=== PATIENT | male | born 1950 | race Caucasian/White ===

== ENCOUNTER 2019-03-22 13:21 | Emergency (ER) | payer OTHER, SELFPAY ==
--- NOTE | 2019-03-22 13:31 | DI.RAD.S_ITS ---
PROCEDURE: XR CHEST 2V INDICATIONS: SOB TECHNIQUE: 2 views of the chest were acquired. COMPARISON: None. FINDINGS: Surgical changes and devices: None. Lungs and pleura: The increased density is seen within the right upper lobe. No definite pneumothorax is appreciated. There is no effusion. Mediastinum: Mediastinal contours are normal. Heart size is normal. Bones and chest wall: No suspicious bony abnormalities. Soft tissues appear unremarkable. IMPRESSION: Right upper lobe airspace disease is suspicious for developing pneumonia. Dictated by: Dhaval Soliman M.D. on 03/22/2019 at 14:29 Approved by: Dhaval Soliman M.D. on 03/22/2019 at 14:29
--- NOTE | 2019-03-22 13:32 | ED.SOB ---
HPI - SOB/Dyspnea General Chief Complaint: Upper Respiratory Symptoms Stated Complaint: trouble breathing about 10 days Time Seen by Provider: 03/22/19 13:26 Source: patient Mode of arrival: ambulatory Limitations: no limitations History of Present Illness 69-year-old male nonsmoker with benign medical history presents with a chief complaint of 10 days of shortness of breath, wheeze, fatigue, fever and chills and cough. 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 He tends to get better after of course of Augmentin but this time around if anything he is worse. He has chest pain but only with cough and denies any radiation of this pain. He denies any nausea, vomiting or diarrhea. He last took Tylenol a few hours ago. He is traveling from [place]. He denies any recent injuries, trauma or surgery. He denies any history of blood clots or cancer MD Complaint: shortness of breath, cough and pain with inspiration Onset (ago): day(s) Context: recent illness Severity: moderate Consistency/Duration: constant Relieving factors: rest Exacerbating factors: exertion, movement and coughing Associated symptoms: pain with inspiration, fever, cough and wheezing Related Data Home oxygen amount: none Home Medications Medication Instructions Recorded Confirmed montelukast 10 mg PO DAILY 03/22/19 03/22/19 sertraline 100 mg PO DAILY 03/22/19 03/22/19 simvastatin 20 mg PO DAILY 03/22/19 Previous Rx's Medication Instructions Recorded albuterol sulfate 2 puff INHALATION Q4H PRN #1 each 03/22/19 doxycycline hyclate 100 mg PO BID #20 tab 03/22/19 Allergies Allergy/AdvReac Type Severity Reaction Status Date / Time No Known Drug Allergies Allergy Verified 03/22/19 13:35 Review of Systems Constitutional Denies chills, Denies fever(s), Denies lethargy and Denies weakness Eyes Denies change in vision, Denies eye discharge, Denies irritation and Denies loss of vision ENT Ears, Nose, Mouth, and Throat: Denies change in voice, Denies neck pain and Denies sore throat Cardiovascular Reports chest pain, Denies irregular heart rhythm, Denies lightheadedness, Denies palpitations, Reports dyspnea, Reports dyspnea on exertion and Denies orthopnea Respiratory Reports cough, Reports dyspnea, Reports dyspnea on exertion and Reports wheezing Gastrointestinal Gastrointestinal: Denies abdominal pain, Denies change in bowel habits, Denies diarrhea, Denies nausea and Denies vomiting Genitourinary Denies hematuria, Denies flank pain, Denies urinary incontinence and Denies urinary urgency Musculoskeletal Denies neck pain Integumentary/Breasts Denies pruritus, Denies erythema, Denies rash and Denies wounds Neurologic Denies confusion, Denies loss of vision and Denies weakness Psychiatric Denies anxiety, Denies confusion, Denies depression, Denies homicidal ideation and Denies suicidal ideation Endocrine Denies palpitations Hematologic/Lymphatic Denies easy bruising Allergic/Immunologic Reports wheezing [facility] Medical History (Updated 03/22/19 @ 14:17 by Minor Reyes DO) Acute chemical bronchitis (Acute) Social History (Updated 03/22/19 @ 13:34 by Minor Reyes DO) Smoking Status: Never smoker Social History (Updated 03/22/19 @ 13:34 by Minor Reyes DO) Smoking Status: Never smoker Exam Narrative Exam Narrative: GENERAL: 69-year-old male appears younger than stated age, in some obvious, moderate distress with increased work of breathing HEAD: Atraumatic. Normocephalic. No temporal or scalp tenderness. EYES: Pupils equal round and reactive. Extraocular motions intact. No scleral icterus. No injection or drainage. ENT: Nose without bleeding, purulent drainage or septal hematoma. Throat without erythema, tonsillar hypertrophy or exudate. Uvula midline. Airway patent. NECK: Trachea midline. No JVD or lymphadenopathy. Supple, nontender, no meningeal signs. CARDIOVASCULAR: Regular rate and rhythm without murmurs, gallops, or rubs. RESPIRATORY: Decreased breath sounds bilaterally with prolonged expiratory phase and expiratory wheeze in all adkins GASTROINTESTINAL: Abdomen soft, non-tender, nondistended. No hepato-splenomegaly, or palpable masses. No guarding. EXTREMITIES: No clubbing, cyanosis, or edema. No joint tenderness, effusion, or edema noted. BACK: Nontender without deformity or crepitance. No flank tenderness. NEURO: AOx3. SKIN: No rash or erythema. Initial Vital Signs Initial Vital Signs: Vital Signs Temperature 98.1 F 03/22/19 13:35 Pulse Rate 92 H 03/22/19 13:35 Respiratory Rate 22 03/22/19 13:35 Blood Pressure 133/69 03/22/19 13:35 Pulse Oximetry 94 03/22/19 13:35 Course Orders Ordered: ED Orders 03/22/19 13:31 XR chest 2V Stat 03/22/19 14:00 Basic Metabolic Panel Stat Complete Blood Count AUTO DIFF Stat D Dimer Stat Procalcitonin Stat 03/22/19 14:35 Blood Culture Stat 03/22/19 14:41 CT angio chest PE protocol Stat Albuterol/Ipratropium (Duoneb) 3 ml INH NOW PRN PRN Reason: Wheezing Stop: 03/23/19 13:45 Last Admin: 03/22/19 13:47 Dose: 3 ml Discontinued Medications Albuterol/Ipratropium (Duoneb) 3 ml INH NOW ONE Stop: 03/22/19 13:31 Last Admin: 03/22/19 13:38 Dose: 3 ml Methylprednisolone (Solu-Medrol 125 Mg Vial) 125 mg IV NOW ONE Stop: 03/22/19 13:31 Last Admin: 03/22/19 14:21 Dose: 125 mg Reevaluation(s) Reevaluation #1: great improvement after duonebs Vital Signs - 8 hr 03/22/19 13:35 03/22/19 13:40 03/22/19 13:47 Temperature 98.1 F Pulse Rate 92 H 76 85 Respiratory Rate 22 16 16 Blood Pressure 133/69 Pulse Oximetry 94 96 99 MDM - SOB/Dyspnea Lab Data Result diagrams: 03/22/19 14:00 03/22/19 14:00 Lab Results 03/22/19 03/22/19 03/22/19 Range/Units 14:00 14:00 14:00 WBC 13.1 H (4.5-11.0) X10^3/uL RBC 4.33 L (4.5-5.9) X10^6/uL Hgb 13.6 (13.5-17.5) g/dL Hct 40.9 L (41-53) % MCV 94.5 (80-100) fL MCH 31.3 (26-34) PG MCHC 33.2 (30-36) % RDW 13.2 (11.6-14.8) % Plt Count 270 (150-400) X10^3/uL Neut % (Auto) 85.0 H (50-75) % Lymph % (Auto) 8.1 L (25-40) % Lamb % (Auto) 5.8 (3-14) % Eos % (Auto) 0.6 L (2-4) % Baso % (Auto) 0.5 (0-2) % Neut # (Auto) 18539 H (8561-0048) /uL Lymph # (Auto) 1100 (8345-6779) /uL Lamb # (Auto) 800 (0-900) /uL Eos # (Auto) 100 (0-450) /uL Baso # (Auto) 100 (0-100) /uL D-Dimer 2078 H (<230) ng/mL Sodium 131 L (137-145) mmol/L Potassium 4.4 (3.4-5.1) mmol/L Chloride 97 L (98-107) mmol/L Carbon Dioxide 23 (22-32) mmol/L BUN 15 (9-20) mg/dL Creatinine 0.70 (0.66-1.25) mg/dL Estimated GFR > 60.0 (>60) mL/min BUN/Creatinine Ratio 21.4 (6-22) Glucose 174 H (80-110) mg/dL Calcium 9.0 (8.4-10.2) mg/dL Procalcitonin (<0.5) ng/mL 03/22/19 Range/Units 14:00 WBC (4.5-11.0) X10^3/uL RBC (4.5-5.9) X10^6/uL Hgb (13.5-17.5) g/dL Hct (41-53) % MCV (80-100) fL MCH (26-34) PG MCHC (30-36) % RDW (11.6-14.8) % Plt Count (150-400) X10^3/uL Neut % (Auto) (50-75) % Lymph % (Auto) (25-40) % Lamb % (Auto) (3-14) % Eos % (Auto) (2-4) % Baso % (Auto) (0-2) % Neut # (Auto) (7673-0724) /uL Lymph # (Auto) (9924-0956) /uL Lamb # (Auto) (0-900) /uL Eos # (Auto) (0-450) /uL Baso # (Auto) (0-100) /uL D-Dimer (<230) ng/mL Sodium (137-145) mmol/L Potassium (3.4-5.1) mmol/L Chloride (98-107) mmol/L Carbon Dioxide (22-32) mmol/L BUN (9-20) mg/dL Creatinine (0.66-1.25) mg/dL Estimated GFR (>60) mL/min BUN/Creatinine Ratio (6-22) Glucose (80-110) mg/dL Calcium (8.4-10.2) mg/dL Procalcitonin < 0.05 (<0.5) ng/mL Imaging Data CT scan - chest: Radiologist's impression: [address] [id number] [address] Scan Report Signed Patient: Chino Alnoso R#: [id number] : 9Acct:[id number] Age/Sex: 69 / MDate of Service: 03/22/19 Loc: ED Accession Number: [id number] Procedure: CT angio chest PE protocol Ordering Provider: Minor Reyes D.O. PROCEDURE: CT ANGIO CHEST PE PROTOCOL INDICATIONS: cough, SOB, critical Dimer TECHNIQUE: After the administration of intravenous contrast, 2 mm thick sections acquired from the pulmonary apices to the posterior costophrenic angles. 3-dimensional maximum intensity projection (MIP) coronal and sagittal reformats were then acquired through the thorax. For radiation dose reduction, the following was used: automated exposure control, adjustment of mA and/or kV according to patient size. COMPARISON: None. FINDINGS: Image quality: Diagnostic Pulmonary arteries: Pulmonary arteries are normal in size, and demonstrate no intraluminal filling defects to suggest central pulmonary embolism. Lungs and pleura: Geographic areas of groundglass attenuation are seen within the bilateral upper lobes, predominately. However, additional areas of mild groundglass attenuation are seen within the left lower lobe. No significant bronchial wall thickening is evident. There is no lung mass or definite pulmonary nodule. No pleural effusion or pneumothorax is evident. Mediastinum: Heart size is normal, with a small pericardial effusion along the right ventricle Thoracic aorta is normal in caliber and enhancement. A few mildly prominent mediastinal lymph nodes are identified. The largest is located within in the right tracheobronchial region and measures 2.1 x 1.0 cm (image 37, series 4). Similar sized aortopulmonary window lymph nodes are present. There is aortic atherosclerosis. Mild prominence of the wall of the esophagus is present. There is a small hiatal hernia. Bones and chest wall: No suspicious bony lesions. Ribs and thoracic spine appear intact throughout. Thyroid gland is not enlarged or adequately evaluated. No axillary or supraclavicular adenopathy. Abdomen: There may be an extrarenal pelvis on the left. A small calcification within the region of the head of the pancreas is noted, suggesting prior pancreatitis. Otherwise, the included portions of the upper abdomen are unremarkable. upper abdominal solid organs appear normal in the early arterial phase of enhancement. IMPRESSION: 1. No evidence of pulmonary emboli. 2. Diffuse groundglass attenuation is predominantly seen within the bilateral upper lobes, which is suspicious for atypical pulmonary edema, hypersensitivity pneumonitis, atypical pulmonary infection, or potentially toxic inhalation. Clinical correlation is recommended. Followup imaging in 6-8 weeks is recommended to ensure complete resolution. 3. Borderline enlarged mediastinal lymph nodes are probably reactive. 4. Thickening of the wall of the distal esophagus may represent esophagitis. 5. Small hiatal hernia. 6. Trace pericardial effusion. Dictated by: Dhaval Soliman M.D. on 03/22/2019 at 15:34 Approved by: Dhaval Soliman M.D. on 03/22/2019 at 15:42 MDM Narrative Medical decision making narrative: Multiple etiologies for patient's symptoms considered including: [Typical pneumonia versus atypical pneumonia versus pneumonitis versus pulmonary embolism versus other] Patient's symptoms improved or duration of stay with above-stated therapies. Findings and discharge diagnosis discussed with patient/family followed by verbalization of understanding Return precautions discussed with patient/family whom verbalize understanding. Discharge Plan Departure Patient Disposition: Home Clinical Impression: Upper respiratory infection Activity Restrictions/Additional Instructions: *You have been diagnosed with [atypical pneumonia] *What to do: *Take medications as directed *Follow up with your primary care provider in 2-3 days, call for an appointment. Let them know you were seen in the Emergency Department and that we ask that you be seen in follow up *Return to ER if you should have any new, worsening or concerning symptoms Prescriptions: New doxycycline hyclate 100 mg tablet 100 mg PO BID Qty: 20 RF: 0 albuterol sulfate 90 mcg/actuation aerosol powdr breath activated 2 puff INHALATION Q4H PRN (Reason: shortness of breath or wheezing) Qty: 1 RF: 0 No Action sertraline 100 mg tablet 100 mg PO DAILY RF: 0 simvastatin 20 mg tablet 20 mg PO DAILY RF: 0 montelukast 10 mg tablet 10 mg PO DAILY RF: 0
[2019-03-22 13:35] VITALS: BP 133/69; PULSE 92; RESP 22; TEMP 36.7; O2SAT 94; BMI 22.4
--- NOTE | 2019-03-22 13:36 | ED_ITS ---
HPI - SOB/Dyspnea General Chief Complaint: Upper Respiratory Symptoms Stated Complaint: trouble breathing about 10 days Time Seen by Provider: 03/22/19 13:26 Source: patient Mode of arrival: ambulatory Limitations: no limitations History of Present Illness 69-year-old male nonsmoker with benign medical history presents with a chief complaint of 10 days of shortness of breath, wheeze, fatigue, fever and chills and cough. 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 He tends to get better after of course of Augmentin but this time around if anything he is worse. He has chest pain but only with cough and denies any radiation of this pain. He denies any nausea, vomiting or diarrhea. He last took Tylenol a few hours ago. He is traveling from [place]. He denies any recent injuries, trauma or surgery. He denies any history of blood clots or cancer MD Complaint: shortness of breath, cough and pain with inspiration Onset (ago): day(s) Context: recent illness Severity: moderate Consistency/Duration: constant Relieving factors: rest Exacerbating factors: exertion, movement and coughing Associated symptoms: pain with inspiration, fever, cough and wheezing Related Data Home oxygen amount: none Home Medications Medication Instructions Recorded Confirmed montelukast 10 mg PO DAILY 03/22/19 03/22/19 sertraline 100 mg PO DAILY 03/22/19 03/22/19 simvastatin 20 mg PO DAILY 03/22/19 Previous Rx's Medication Instructions Recorded albuterol sulfate 2 puff INHALATION Q4H PRN #1 each 03/22/19 doxycycline hyclate 100 mg PO BID #20 tab 03/22/19 Allergies Allergy/AdvReac Type Severity Reaction Status Date / Time No Known Drug Allergies Allergy Verified 03/22/19 13:35 Review of Systems Constitutional Denies chills, Denies fever(s), Denies lethargy and Denies weakness Eyes Denies change in vision, Denies eye discharge, Denies irritation and Denies loss of vision ENT Ears, Nose, Mouth, and Throat: Denies change in voice, Denies neck pain and Denies sore throat Cardiovascular Reports chest pain, Denies irregular heart rhythm, Denies lightheadedness, Denies palpitations, Reports dyspnea, Reports dyspnea on exertion and Denies o rthopnea Respiratory Reports cough, Reports dyspnea, Reports dyspnea on exertion and Reports wheezing Gastrointestinal Gastrointestinal: Denies abdominal pain, Denies change in bowel habits, Denies diarrhea, Denies nausea and Denies vomiting Genitourinary Denies hematuria, Denies flank pain, Denies urinary incontinence and Denies urinary urgency Musculoskeletal Denies neck pain Integumentary/Breasts Denies pruritus, Denies erythema, Denies rash and Denies wounds Neurologic Denies confusion, Denies loss of vision and Denies weakness Psychiatric Denies anxiety, Denies confusion, Denies depression, Denies homicidal ideation and Denies suicidal ideation Endocrine Denies palpitations Hematologic/Lymphatic Denies easy bruising Allergic/Immunologic Reports wheezing [facility] Medical History (Updated 03/22/19 @ 14:17 by Minor Reyes DO) Acute chemical bronchitis (Acute) Social History (Updated 03/22/19 @ 13:34 by Minor Reyes DO) Smoking Status: Never smoker Social History (Updated 03/22/19 @ 13:34 by Minor Reyes DO) Smoking Status: Never smoker Exam Narrative Exam Narrative: GENERAL: 69-year-old male appears younger than stated age, in some obvious, moderate distress with increased work of breathing HEAD: Atraumatic. Normocephalic. No temporal or scalp tenderness. EYES: Pupils equal round and reactive. Extraocular motions intact. No scleral icterus. No injection or drainage. ENT: Nose without bleeding, purulent drainage or septal hematoma. Throat without erythema, tonsillar hypertrophy or exudate. Uvula midline. Airway patent. NECK: Trachea midline. No JVD or lymphadenopathy. Supple, nontender, no meni ngeal signs. CARDIOVASCULAR: Regular rate and rhythm without murmurs, gallops, or rubs. RESPIRATORY: Decreased breath sounds bilaterally with prolonged expiratory phase and expiratory wheeze in all adkins GASTROINTESTINAL: Abdomen soft, non-tender, nondistended. No hepato- splenomegaly, or palpable masses. No guarding. EXTREMITIES: No clubbing, cyanosis, or edema. No joint tenderness, effusion, or edema noted. BACK: Nontender without deformity or crepitance. No flank tenderness. NEURO: AOx3. SKIN: No rash or erythema. Initial Vital Signs Initial Vital Signs: Vital Signs Temperature 98.1 F 03/22/19 13:35 Pulse Rate 92 H 03/22/19 13:35 Respiratory Rate 22 03/22/19 13:35 Blood Pressure 133/69 03/22/19 13:35 Pulse Oximetry 94 03/22/19 13:35 Course Orders Ordered: ED Orders 03/22/19 13:31 XR chest 2V Stat 03/22/19 14:00 Basic Metabolic Panel Stat Complete Blood Count AUTO DIFF Stat D Dimer Stat Procalcitonin Stat 03/22/19 14:35 Blood Culture Stat 03/22/19 14:41 CT angio chest PE protocol Stat Albuterol/Ipratropium (Duoneb) 3 ml INH NOW PRN PRN Reason: Wheezing Stop: 03/23/19 13:45 Last Admin: 03/22/19 13:47 Dose: 3 ml Discontinued Medications Albuterol/Ipratropium (Duoneb) 3 ml INH NOW ONE Stop: 03/22/19 13:31 Last Admin: 03/22/19 13:38 Dose: 3 ml Methylprednisolone (Solu-Medrol 125 Mg Vial) 125 mg IV NOW ONE Stop: 03/22/19 13:31 Last Admin: 03/22/19 14:21 Dose: 125 mg Reevaluation(s) Reevaluation #1: great improvement after duonebs Vital Signs - 8 hr 03/22/19 13:35 03/22/19 13:40 03/22/19 13:47 Temperature 98.1 F Pulse Rate 92 H 76 85 Respiratory Rate 22 16 16 Blood Pressure 133/69 Pulse Oximetry 94 96 99 MDM - SOB/Dyspnea Lab Data Result diagrams: 03/22/19 14:00 03/22/19 14:00 Lab Results 03/22/19 03/22/19 03/22/19 Range/Units 14:00 14:00 14:00 WBC 13.1 H (4.5-11.0) X10^3/uL RBC 4.33 L (4.5-5.9) X10^6/uL Hgb 13.6 (13.5-17.5) g/dL Hct 40.9 L (41-53) % MCV 94.5 (80-100) fL MCH 31.3 (26-34) PG MCHC 33.2 (30-36) % RDW 13.2 (11.6-14.8) % Plt Count 270 (150-400) X10^3/uL Neut % (Auto) 85.0 H (50-75) % Lymph % (Auto) 8.1 L (25-40) % [facility] % (Auto) 5.8 (3-14) % Eos % (Auto) 0.6 L (2-4) % Baso % (Auto) 0.5 (0-2) % Neut # (Auto) 04539 H (1729-8568) /uL Lymph # (Auto) 1100 (3688-7059) /uL [facility] # (Auto) 800 (0-900) /uL Eos # (Auto) 100 (0-450) /uL Baso # (Auto) 100 (0-100) /uL D-Dimer 2078 H (<230) ng/mL Sodium 131 L (137-145) mmol/L Potassium 4.4 (3.4-5.1) mmol/L Chloride 97 L (98-107) mmol/L Carbon Dioxide 23 (22-32) mmol/L BUN 15 (9-20) mg/dL Creatinine 0.70 (0.66-1.25) mg/dL Estimated GFR > 60.0 (>60) mL/min BUN/Creatinine Ratio 21.4 (6-22) Glucose 174 H (80-110) mg/dL Calcium 9.0 (8.4-10.2) mg/dL Procalcitonin (<0.5) ng/mL 03/22/19 Range/Units 14:00 WBC (4.5-11.0) X10^3/uL RBC (4.5-5.9) X10^6/uL Hgb (13.5-17.5) g/dL Hct (41-53) % MCV (80-100) fL MCH (26-34) PG MCHC (30-36) % RDW (11.6-14.8) % Plt Count (150-400) X10^3/uL Neut % (Auto) (50-75) % Lymph % (Auto) (25-40) % [facility] % (Auto) (3-14) % Eos % (Auto) (2-4) % Baso % (Auto) (0-2) % Neut # (Auto) (5744-5018) /uL Lymph # (Auto) (3741-9326) /uL [facility] # (Auto) (0-900) /uL Eos # (Auto) (0-450) /uL Baso # (Auto) (0-100) /uL D-Dimer (<230) ng/mL Sodium (137-145) mmol/L Potassium (3.4-5.1) mmol/L Chloride (98-107) mmol/L Carbon Dioxide (22-32) mmol/L BUN (9-20) mg/dL Creatinine (0.66-1.25) mg/dL Estimated GFR (>60) mL/min BUN/Creatinine Ratio (6-22) Glucose (80-110) mg/dL Calcium (8.4-10.2) mg/dL Procalcitonin < 0.05 (<0.5) ng/mL Imaging Data CT scan - chest: Radiologist's impression: [place] [address] CT Scan Report Signed Patient: Chino Alonso R#: [id number] : 9Acct:[id number] Age/Sex: 69 / MDate of Service: 03/22/19 Loc: ED Accession Number: [id number] Procedure: CT angio chest PE protocol Ordering Provider: Minor Reyes D.O. PROCEDURE: CT ANGIO CHEST PE PROTOCOL INDICATIONS: cough, SOB, critical Dimer TECHNIQUE: After the administration of intravenous contrast, 2 mm thick sections acquired from the pulmonary apices to the posterior costophrenic angles. 3-dimensional maximum intensity projection (MIP) coronal and sagittal reformats were then acquired through the thorax. For radiation dose reduction, the following was used: automated exposure control, adjustment of mA and/or kV according to patient size. COMPARISON: None. FINDINGS: Image quality: Diagnostic Pulmonary arteries: Pulmonary arteries are normal in size, and demonstrate no intraluminal filling defects to suggest central pulmonary embolism. Lungs and pleura: Geographic areas of groundglass attenuation are seen within the bilateral upper lobes, predominately. However, additional areas of mild groundglass attenuation are seen within the left lower lobe. No significant bronchial wall thickening is evident. There is no lung mass or definite pulmonary nodule. No pleural effusion or pneumothorax is evident. Mediastinum: Heart size is normal, with a small pericardial effusion along the right ventricle Thoracic aorta is normal in caliber and enhancement. A few mildly prominent mediastinal lymph nodes are identified. The largest is located within in the right tracheobronchial region and measures 2.1 x 1.0 cm (image 37, series 4). Similar sized aortopulmonary window lymph nodes are present. There is aortic atherosclerosis. Mild prominence of the wall of the esophagus is present. There is a small hiatal hernia. Bones and chest wall: No suspicious bony lesions. Ribs and thoracic spine appear intact throughout. Thyroid gland is not enlarged or adequately evaluated. No axillary or supraclavicular adenopathy. Abdomen: There may be an extrarenal pelvis on the left. A small calcification within the region of the head of the pancreas is noted, suggesting prior pancreatitis. Otherwise, the included portions of the upper abdomen are unremarkable. upper abdominal solid organs appear normal in the early arterial phase of enhancement. IMPRESSION: 1. No evidence of pulmonary emboli. 2. Diffuse groundglass attenuation is predominantly seen within the bilateral upper lobes, which is suspicious for atypical pulmonary edema, hypersensitivity pneumonitis, atypical pulmonary infection, or potentially toxic inhalation. Clinical correlation is recommended. Followup imaging in 6-8 weeks is recommended to ensure complete resolution. 3. Borderline enlarged mediastinal lymph nodes are probably reactive. 4. Thickening of the wall of the distal esophagus may represent esophagitis. 5. Small hiatal hernia. 6. Trace pericardial effusion. Dictated by: Dhaval Soliman M.D. on 03/22/2019 at 15:34 Approved by: Dhaval Soliman M.D. on 03/22/2019 at 15:42 MDM Narrative Medical decision making narrative: Multiple etiologies for patient's symptoms considered including: [Typical pneumonia versus atypical pneumonia versus pneumonitis versus pulmonary embolism versus other] Patient's symptoms improved or duration of stay with above-stated therapies. Findings and discharge diagnosis discussed with patient/family followed by verbalization of understanding Return precautions discussed with patient/family whom verbalize understanding. Discharge Plan Departure Patient Disposition: Home Clinical Impression: Upper respiratory infection Activity Restrictions/Additional Instructions: *You have been diagnosed with [atypical pneumonia] *What to do: *Take medications as directed *Follow up with your primary care provider in 2-3 days, call for an appointment. Let them know you were seen in the Emergency Department and that we ask that you be seen in follow up *Return to ER if you should have any new, worsening or concerning symptoms Prescriptions: New doxycycline hyclate 100 mg tablet 100 mg PO BID Qty: 20 RF: 0 albuterol sulfate 90 mcg/actuation aerosol powdr breath activated 2 puff INHALATION Q4H PRN (Reason: shortness of breath or wheezing) Qty: 1 RF: 0 No Action sertraline 100 mg tablet 100 mg PO DAILY RF: 0 simvastatin 20 mg tablet 20 mg PO DAILY RF: 0 montelukast 10 mg tablet 10 mg PO DAILY RF: 0
[2019-03-22] MEDS: ALBUTEROL/IPRATROPIUM 3 ML AMPUL INH ×2 (13:38→13:47)
[2019-03-22 13:40] VITALS: PULSE 76; RESP 16; O2SAT 96
[2019-03-22 13:47] VITALS: PULSE 85; RESP 16; O2SAT 99
--- NOTE | 2019-03-22 14:19 | PC.NURSE ---
Pt had received duoneb, lungs clear after neb.
[2019-03-22 14:21] LABS: Add Manual Diff / Slide Review NO; Basophils Absolute Auto 100 /uL (0-100); Basophils Percent Auto 0.5 % (0-2); Eosinophils Absolute Auto 100 /uL (0-450); Eosinophils Percent Auto 0.6 % (2-4); Hematocrit 40.9 % (41-53); Hemoglobin 13.6 g/dL (13.5-17.5); Lymphocytes Absolute Auto 1100 /uL (1100-4500); Lymphocytes Percent Auto 8.1 % (25-40); Mean Corpuscular HGB Conc 33.2 % (30-36); Mean Corpuscular Hemoglobin 31.3 PG (26-34); Mean Corpuscular Volume 94.5 fL (80-100); Monocytes Absolute Auto 800 /uL (0-900); Monocytes Percent Auto 5.8 % (3-14); Neutrophils Absolute Auto 11100 /uL (1500-7000); Platelet Count 270 X10^3/uL (150-400); Red Blood Cell Count 4.33 X10^6/uL (4.5-5.9); Red Cell Distribution Width 13.2 % (11.6-14.8); White Blood Cell Count 13.1 X10^3/uL (4.5-11.0)
[2019-03-22] MEDS: methylPREDNISolone 125 MG/2 ML VIAL IV (14:21)
[2019-03-22 14:35] LABS: D Dimer 2078 ng/mL (<230)
[2019-03-22 14:36] LABS: BUN Creatinine Ratio 21.4 (6-22); Blood Urea Nitrogen 15 mg/dL (9-20); Carbon Dioxide 23 mmol/L (22-32); Chloride 97 mmol/L (98-107); Estimated Glomerular Filt Rate > 60.0 mL/min (>60); Glucose 174 mg/dL (80-110); HEMOLYSIS < 15 (0-50); Potassium 4.4 mmol/L (3.4-5.1); Sodium 131 mmol/L (137-145)
--- NOTE | 2019-03-22 14:41 | DI.CT.S_ITS ---
PROCEDURE: CT ANGIO CHEST PE PROTOCOL INDICATIONS: cough, SOB, critical Dimer TECHNIQUE: After the administration of intravenous contrast, 2 mm thick sections acquired from the pulmonary apices to the posterior costophrenic angles. 3-dimensional maximum intensity projection (MIP) coronal and sagittal reformats were then acquired through the thorax. For radiation dose reduction, the following was used: automated exposure control, adjustment of mA and/or kV according to patient size. COMPARISON: None. FINDINGS: Image quality: Diagnostic Pulmonary arteries: Pulmonary arteries are normal in size, and demonstrate no intraluminal filling defects to suggest central pulmonary embolism. Lungs and pleura: Geographic areas of groundglass attenuation are seen within the bilateral upper lobes, predominately. However, additional areas of mild groundglass attenuation are seen within the left lower lobe. No significant bronchial wall thickening is evident. There is no lung mass or definite pulmonary nodule. No pleural effusion or pneumothorax is evident. Mediastinum: Heart size is normal, with a small pericardial effusion along the right ventricle Thoracic aorta is normal in caliber and enhancement. A few mildly prominent mediastinal lymph nodes are identified. The largest is located within in the right tracheobronchial region and measures 2.1 x 1.0 cm (image 37, series 4). Similar sized aortopulmonary window lymph nodes are present. There is aortic atherosclerosis. Mild prominence of the wall of the esophagus is present. There is a small hiatal hernia. Bones and chest wall: No suspicious bony lesions. Ribs and thoracic spine appear intact throughout. Thyroid gland is not enlarged or adequately evaluated. No axillary or supraclavicular adenopathy. Abdomen: There may be an extrarenal pelvis on the left. A small calcification within the region of the head of the pancreas is noted, suggesting prior pancreatitis. Otherwise, the included portions of the upper abdomen are unremarkable. upper abdominal solid organs appear normal in the early arterial phase of enhancement. IMPRESSION: 1. No evidence of pulmonary emboli. 2. Diffuse groundglass attenuation is predominantly seen within the bilateral upper lobes, which is suspicious for atypical pulmonary edema, hypersensitivity pneumonitis, atypical pulmonary infection, or potentially toxic inhalation. Clinical correlation is recommended. Followup imaging in 6-8 weeks is recommended to ensure complete resolution. 3. Borderline enlarged mediastinal lymph nodes are probably reactive. 4. Thickening of the wall of the distal esophagus may represent esophagitis. 5. Small hiatal hernia. 6. Trace pericardial effusion. Dictated by: Dhaval Soliman M.D. on 03/22/2019 at 15:34 Approved by: Dhaval Soliman M.D. on 03/22/2019 at 15:42
[2019-03-22 15:03] LABS: Procalcitonin < 0.05 ng/mL (<0.5)
[2019-03-22 16:16] VITALS: BP 122/68; PULSE 68; RESP 16; O2SAT 98
== END 2019-03-22 16:18 | disposition home or self-care (01) ==
PROVIDERS: Emergency Provider Emergency Medicine
DX: J06.9 Acute upper respiratory infection, unspecified (principal)
CPT/HCPCS: 36415; 36591; 71046; 71275; 80048; 84145; 85025; 85379; 87040; 94640; 96374; 99282; 99284; J2930; Q9967